=== PATIENT | male | born 1955 | race Hispanic/Latino ===

== ENCOUNTER → 2021-12-27 | Outpatient (CLI) | payer BC ==
[~2021-12-27] MED LIST: GADOTERATE MEGLUMINE 10 MMOL/20 ML VIAL IV ONE
== END | disposition home or self-care (01) ==
LOC: RAH 09:56
PROVIDERS: ATTEND Otolaryngology Otology & Neurotology
DX: H90.5 Unspecified sensorineural hearing loss (principal)
CPT/HCPCS: 70553; A9575

== ENCOUNTER → 2022-01-15 | Outpatient (CLI) | payer BC | END | disposition home or self-care (01) | LOC: RAH 08:39 | PROVIDERS: ATTEND Physical Medicine & Rehabilitation | DX: M54.6 Pain in thoracic spine (principal); M54.2 Cervicalgia; Z98.1 Arthrodesis status | CPT/HCPCS: 72050; 72074 ==

== ENCOUNTER → 2025-08-05 | Outpatient (CLI) | payer BC, MEDICARE ==
--- NOTE | 2025-08-05 16:29 | HMCIMG ---
ANKLE COMP 3VWS LT REASON: PAIN IN LEFT ANKLE AND JOINTS OF LEFT FOOT TECHNIQUE: 3 views were obtained. FINDINGS: There is no evidence of fracture or dislocation. With orthopedic plates in the distal left fibula.. There is no joint effusion. The soft tissues appear unremarkable. There is no evidence of a radiopaque foreign body. There is mild osteopenia IMPRESSION: No acute fracture or dislocation. ORIF of distal left fibula with orthopedic plate and multiple screws in place.
== END | disposition home or self-care (01) ==
LOC: RAH 15:24
PROVIDERS: ATTEND Physical Medicine & Rehabilitation
DX: M85.872 Other specified disorders of bone density and structure, left ankle and foot (principal); M25.572 Pain in left ankle and joints of left foot
CPT/HCPCS: 73610

== ENCOUNTER → 2025-08-11 | Outpatient (CLI) | payer MEDICARE ==
--- NOTE | 2025-08-11 22:28 | HMCIMG ---
EXAM: XR Cervical spine, 6 Views total. CLINICAL HISTORY: 70-year-old male, with a history of ACDF at C4 and C5. COMPARISON: None provided. FINDINGS: BONES: Mild osteopenia. DISCS/DEGENERATIVE CHANGES: ACDF at C4 and C5. SOFT TISSUES: Mild nodular changes. The visualized lungs appear clear. IMPRESSION: 1. Status post ACDF at C4 and C5. 2. Mild osteopenia and mild nodular changes. /[place]
== END | disposition home or self-care (01) ==
LOC: RAH 15:36
PROVIDERS: ATTEND Physical Medicine & Rehabilitation
DX: M99.01 Segmental and somatic dysfunction of cervical region (principal); M85.88 Other specified disorders of bone density and structure, other site; M54.2 Cervicalgia; Z98.1 Arthrodesis status
CPT/HCPCS: 72050